=== PATIENT | male | born 1950 | race Caucasian/White ===

== ENCOUNTER → 2016-11-25 | Outpatient (CLI) | payer MEDICARE, BC ==
[~2016-11-25] MED LIST: ASPIRIN PO; LORTAB 5/500 TA1 TA1; NAPROSYN500 MG PO; PERCOCET5/325 PO
--- NOTE | ~2016-11-25 | US83 ---
[facility] A Service of [facility] & [facility] RADIOLOGY TEXT RESULTS PATIENT: DEYVI MONTERO LOCATION: CNIV : 51 UNIT #: [id number] AGE: [address]: AMERICA SANCHEZ APRN SEX: M ORDER DR: [id number] [facility] [address] [place], [place] [address] [id number] O MR#: [id number] Acc #: [id number] NAME: DEYVI MONTERO. : 1950 SEX: M STUDY DATE/TIME: 11/25/2016 13:50 UNIT: CNIV ROOM: STUDY DESCRIPTION: [employer] Attending Physician: America Sanchez Aprn Referring Physician: America Sanchez Aprn Ordering Physician: America Sanchez Aprn Primary Care Physician: Daryl Jean Baptiste M.D. MEDICAL IMAGING REPORT This report is preliminary unless electronic signature is present DATE OF EXAMINATION 11/25/2016 EXAM Right lower extremity arterial duplex. CLINICAL HISTORY Status post right fem-popliteal bypass with graft. FINDINGS The right common femoral artery has triphasic flow with a peak velocity of 69 cm/sec. The proximal anastomosis is seen with an elevated velocity of 584 cm/sec. The peak velocity of the graft at the midportion of the thigh is 60 cm/sec, and the distal anastomosis has a peak velocity of 66 cm/sec, all with biphasic flow. The right popliteal artery, sun'aq, has a peak velocity of 70 cm/sec, with biphasic flow. The tibioperoneal trunk has biphasic flow with a peak velocity of 77 cm/sec. The posterior tibial artery at the ankle has a peak velocity of 61 cm/sec. IMPRESSION Patent right femoral to above-knee popliteal bypass graft. There is, however, an elevated velocity of the proximal anastomosis, suggestive of a high-grade stenosis, which was not present on the previous 03/2016 study. Dictated by.Grzegorz Ulloa M.D. THIS IS AN ELECTRONICALLY VERIFIED REPORT Jordin Ulloa M.D. at 11/30/2016 8:25 AM AC/tmw [facility]. [facility] A Service of [facility] & [facility] RADIOLOGY TEXT RESULTS PATIENT: DEYVI MONTERO LOCATION: [facility] : 51 UNIT #: [id number] AGE: [address]: AMERICA SANCHEZ APRN SEX: M ORDER DR: TD: 11/25/2016 16:38 JOB #: [id number] MEDICAL IMAGING REPORT COPY
--- NOTE | ~2016-11-25 | US136 ---
[facility] A Service of [facility] & [facility] RADIOLOGY TEXT RESULTS PATIENT: DEYVI MONTERO LOCATION: CNIV : 51 UNIT #: [id number] AGE: [address]: AMERICA SANCHEZ APRN SEX: M ORDER DR: [id number] [facility] [address] [place], [place] [address] [id number] O MR#: [id number] Acc #: [id number] NAME: DEYVI MONTERO. : 1950 SEX: M STUDY DATE/TIME: 11/25/2016 13:22 UNIT: CNIV ROOM: STUDY DESCRIPTION: U/L Ext [employer] Bil Attending Physician: America Sanchez Aprn Referring Physician: America Sanchez Aprn Ordering Physician: America Sanchez Aprn Primary Care Physician: Daryl Jean Baptiste M.D. MEDICAL IMAGING REPORT This report is preliminary unless electronic signature is present EXAM Ankle-brachial indices CLINICAL HISTORY Atrophic nails, numbness, tingling and edema of the legs FINDINGS Right brachial artery pressure 144. The right dorsalis pedis pressure is 107, with an ankle-brachial index of 0.74. The right posterior vertebral pressure is 99, with an ankle-brachial index of 0.69. The right digital pressure is 76 with a toe index of 0.53. The left brachial artery pressure is 143. The left dorsalis pedis pressure is 85, with an ankle-brachial index of 0.59. The left posterior tibial pressure is 86 with an ankle-brachial index of 0.60. Left digital pressure is 66, with a toe index of 0.46. The left posterior tibial and dorsalis pedis waveforms are monophasic, whereas, the right posterior tibial and dorsalis pedis waveforms are biphasic. Digital waveforms demonstrate sharp upstrokes inside the peaks, with right greater than left. The left ankle is also blunted in comparison to the right. IMPRESSION 1. The right MOLLY is 0.74, consistent with moderate arterial insufficiency. 2. The left MOLLY is 0.67, consistent with moderate arterial insufficiency. 3. The right MOLLY is reduced, and decreased in comparison to 03/2016 site at which point the MOLLY had measured 1.06. The left MOLLY remains STS. [facility] A Service of [facility] & [facility] RADIOLOGY TEXT RESULTS PATIENT: DEYVI MONTERO LOCATION: [facility] : 51 UNIT #: [id number] AGE: [address]: AMERICA SANCHEZ, LIZZIE SEX: M ORDER DR: relatively stable at which point it measured 0.67. Dictated by... Jordin Ulloa M.D. THIS IS AN ELECTRONICALLY VERIFIED REPORT Jordin Ulloa M.D. at 11/30/2016 8:24 AM Tre TD: 11/25/2016 16:21 JOB #: [id number] MEDICAL IMAGING REPORT COPY
== END | disposition home or self-care (01) ==
LOC: CNIV 13:10
DX: I73.9 Peripheral vascular disease, unspecified (principal)
CPT/HCPCS: 93922; 93926

== ENCOUNTER → 2016-12-14 | Outpatient (CLI) | payer OTHER, MEDICARE, BC ==
[2016-12-14 12:50] LABS: CREATININE SERUM 1.4 mg/dL (0.6-1.4); GLOM FILT RATE Estimated 54.1 mL/min (>60)
== END | disposition home or self-care (01) ==
LOC: CLAB 11:49
PROVIDERS: Surgery Vascular Surgery
DX: I73.9 Peripheral vascular disease, unspecified (principal)
CPT/HCPCS: 36415; 82565; 84520

== ENCOUNTER → 2016-12-24 | Outpatient (CLI) | payer MEDICARE, BC ==
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
== END | disposition home or self-care (01) ==
LOC: SRAD 14:12
DX: M54.2 Cervicalgia (principal); M47.812 Spondylosis without myelopathy or radiculopathy, cervical region
CPT/HCPCS: 72040

== ENCOUNTER → 2017-02-14 | Outpatient (CLI) | payer MEDICARE, BC ==
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
== END | disposition home or self-care (01) ==
LOC: CNIV 14:11
DX: I82.723 Chronic embolism and thrombosis of deep veins of upper extremity, bilateral (principal); M79.89 Other specified soft tissue disorders; M79.602 Pain in left arm; C34.32 Malignant neoplasm of lower lobe, left bronchus or lung; I82.602 Acute embolism and thrombosis of unspecified veins of left upper extremity
CPT/HCPCS: 93971

== ENCOUNTER → 2017-03-31 | Outpatient (CLI) | payer MEDICARE, BC ==
--- NOTE | ~2017-03-31 | US136 ---
[facility] A Service of [facility] & [facility] RADIOLOGY TEXT RESULTS PATIENT: DEYVI MONTERO LOCATION: [facility] : 51 UNIT #: [id number] AGE: [address]: Migel Dias MD SEX: M ORDER DR: [id number] [facility] [address] [place], [place] [address] [id number] O MR#: [id number] Acc #: [id number] NAME: DEYVI MONTERO. : 1950 SEX: M STUDY DATE/TIME: 03/31/2017 14:46 UNIT: CNIV ROOM: STUDY DESCRIPTION: US U/L Ext Art Study [facility] Bil Attending Physician: Migel Dias M.D. Referring Physician: Migel Dias M.D. Ordering Physician: Migel Dias M.D. Primary Care Physician: Daryl Jean Baptiste M.D. MEDICAL IMAGING REPORT This report is preliminary unless electronic signature is present DATE OF EXAM 03/31/2017 REASON FOR EXAM Peripheral arterial disease. History of right leg bypass. EXAM Bilateral lower extremity MOLLY. FINDINGS The right brachial pressure is 135, and the left is 127. Right dorsalis pedis pressure is 102 and posterior tibial 101, for an MOLLY of 0.76 and a first toe pressure of 59 mmHg. Left dorsalis pedis pressure is 98 and posterior tibial 88 for an MOLLY of 0.65 and a first toe pressure of 55 mmHg. PVR waveform at the ankle level appear to be intact and symmetric bilaterally. First digital waveforms appear to be intact and normal in appearance with slightly greater amplitude in the right first toe as compared to the left first toe. Arterial waveforms of the dorsalis pedis and posterior arteries demonstrate biphasic waveforms bilaterally. IMPRESSION Moderate arterial insufficiency of both right and left lower extremity based on MOLLY and waveforms with adequate perfusion of the first toes. Dictated by... Migel Dias M.D. THIS IS AN ELECTRONICALLY VERIFIED REPORT Migel Dias M.D. at 04/04/2017 6:34 AM AMA/eric [facility]. [facility] A Service of [facility] & [facility] RADIOLOGY TEXT RESULTS PATIENT: DEYVI MONTERO LOCATION: [facility] : 51 UNIT #: [id number] AGE: [address]: Migel Dias MD SEX: M ORDER DR: TD: 03/31/2017 21:44 JOB #: [id number] MEDICAL IMAGING REPORT Page 1 of 1 COPY
--- NOTE | ~2017-03-31 | US83 ---
[facility] A Service of [facility] RADIOLOGY TEXT RESULTS PATIENT: DEYVI MONTERO LOCATION: CNIV : 51 UNIT #: [id number] AGE: [address]: Migel Dias MD SEX: M ORDER DR: [id number] [facility] [address] [place], [place] [address] [id number] O MR#: [id number] Acc #: [id number] NAME: DEYVI MONTERO. : 1950 SEX: M STUDY DATE/TIME: 03/31/2017 15:21 UNIT: CNIV ROOM: STUDY DESCRIPTION: US [employer] Attending Physician: Migel Dias M.D. Referring Physician: Migel Dias M.D. Ordering Physician: Migel Dias M.D. Primary Care Physician: Daryl Jean Baptiste M.D. MEDICAL IMAGING REPORT This report is preliminary unless electronic signature is present EXAM Right lower extremity graft surveillance ultrasound HISTORY Peripheral arterial disease. History of right leg bypass. FINDINGS The right common femoral artery is the inflow vessel, appears to be widely patent with a velocity of 147 cm/sec. Proximal anastomosis appears to be widely patent and a velocity of 330 cm/sec. The bypass graft from proximal anastomosis to distal anastomosis is widely patent. The proximal graft velocity is 105 cm/sec, mid-thigh 97 cm/sec, distal thigh 104 cm/sec, distal anastomosis 118 cm/sec, outflow via the popliteal artery appears to be widely patent with a velocity of 97 cm/sec, outflow into the tibial vessels appear patent with posterior tibial artery velocity of 76 cm/sec, peroneal artery 55 cm/sec. IMPRESSION Widely patent right femoral to popliteal artery bypass graft without evidence of stenosis. Dictated by... Migel Dias M.D. THIS IS AN ELECTRONICALLY VERIFIED REPORT Migel Dias M.D. at 04/04/2017 6:34 AM AMA/ania TD: 03/31/2017 21:25 JOB #: [id number] [facility] A Service of [facility] RADIOLOGY TEXT RESULTS PATIENT: DEYVI MONTERO LOCATION: [facility] : 51 UNIT #: [id number] AGE: [address]: Migel Dias MD SEX: M ORDER DR: MEDICAL IMAGING REPORT Page 1 of 1 COPY
== END | disposition home or self-care (01) ==
LOC: CNIV 14:32
DX: I73.9 Peripheral vascular disease, unspecified (principal); Z95.828 Presence of other vascular implants and grafts
CPT/HCPCS: 93922; 93926